=== PATIENT | male | born 1935 | race Caucasian/White ===

== ENCOUNTER 2021-01-10 11:39 | Emergency (ER) | payer MEDICARE, OTHER ==
[2021-01-10 11:04] LABS: BASOPHIL 0.9 % (0-2); EOSINOPHIL 1.7 % (0-7); HCT 38.5 % (42.0-52.0); LYMPHOCYTE 14.6 % (15-48); MCH 31.5 pg (25.0-31.0); MCHC 33.8 g/dL (32.0-36.0); MCV 93.2 fL (78.0-100.0); MONOCYTE 7.8 % (0-12); MPV 10.9 fL (6.0-9.5); NEUTROPHIL 74.4 % (41-80); NRBC 0; PLT 248 K/uL (150-400); RBC 4.13 M/uL (4.70-6.00); RDW 12.4 % (11.5-14.0); WBC 7.7 K/uL (4.0-10.5)
[2021-01-10 11:34] LABS: ALBUMIN 3.5 g/dL (3.4-5.0); BILIRUBIN - TOTAL 0.4 mg/dL (0.2-1.0); BUN/CREAT RATIO (CALC) 18.4 RATIO; CREATININE 1.36 mg/dL (0.67-1.17); GLOBULIN (CALCULATION) 3.3 g/dL; POTASSIUM 4.2 mmol/L (3.5-5.1); TOTAL PROTEIN 6.8 g/dL (6.4-8.2)
== END 2021-01-10 12:32 | disposition home or self-care (01) ==
LOC: FER 11:39
PROVIDERS: Emergency Medicine
DX: R07.89 Other chest pain (principal); J44.9 Chronic obstructive pulmonary disease, unspecified
CPT/HCPCS: 36415; 71046; 73130; 80053; 83690; 84484; 85025; 93005

== ENCOUNTER 2021-07-23 16:31 | Inpatient (IN) | payer MEDICARE, OTHER ==
[~2021-07-23] VITALS: Ht 172.7 cm; Wt 82.7 kg
[2021-07-23 17:17] LABS: BASOPHIL 0.4 % (0-2); EOSINOPHIL 4.1 % (0-7); HCT 46.3 % (42.0-52.0); HGB 15.9 g/dl (13.2-18.0); LYMPHOCYTE 29.2 % (15-48); MCH 32.2 pg (25.0-31.0); MCHC 34.3 g/dL (32.0-36.0); MCV 93.7 fL (78.0-100.0); MONOCYTE 10.7 % (0-12); MPV 11.2 fL (6.0-9.5); NEUTROPHIL 55.2 % (41-80); NRBC 0; PLT 182 K/uL (150-400); RBC 4.94 M/uL (4.70-6.00); RDW 13.4 % (11.5-14.0)
[2021-07-23 17:29] LABS: ALBUMIN 2.9 g/dL (3.4-5.0); BILIRUBIN - TOTAL 0.3 mg/dL (0.2-1.0); BUN/CREAT RATIO (CALC) 18.5 RATIO; CREATININE 1.3 mg/dL (0.67-1.17); GLOBULIN (CALCULATION) 2.8 g/dL; TOTAL PROTEIN 5.7 g/dL (6.4-8.2)
[2021-07-23 17:35] LABS: INR 1.11 (0.9-1.2); PROTHROMBIN TIME 13.7 SECONDS (11.8-13.4); PTT 41.5 SECONDS (24.4-34.7)
[2021-07-23 17:44] LABS: POTASSIUM 3.8 mmol/L (3.5-5.1)
[2021-07-23 18:35] LABS: C-REACTIVE PROTEIN > 18.00 mg/dL (<=0.90); MAGNESIUM 2.1 mg/dL (1.8-2.4)
--- NOTE | 2021-07-23 19:51 | NUR ---
DAUGHTER: MAO VELAZQUEZ [phone]. PER DAUGHTER: "PLEASE CONTACT ME WITH ANY QUESTIONS OR UPDATES; I WILL BE THE BUTTON RECLAIMER SINCE WE CAN'T VISIT DAD (COVID PT)."
[2021-07-24 06:09] LABS: BASOPHIL 0 % (0-2); EOSINOPHIL 0 % (0-7); HCT 36.7 % (42.0-52.0); HGB 11.8 g/dl (13.2-18.0); LYMPHOCYTE 4.2 % (15-48); MCH 31.1 pg (25.0-31.0); MCHC 32.2 g/dL (32.0-36.0); MCV 96.6 fL (78.0-100.0); MONOCYTE 5.7 % (0-12); MPV 11.4 fL (6.0-9.5); NEUTROPHIL 89.6 % (41-80); NRBC 0; PLT 129 K/uL (150-400); RDW 13.1 % (11.5-14.0); WBC 6.5 K/uL (4.0-10.5)
[2021-07-24 06:38] LABS: BUN/CREAT RATIO (CALC) 18.4 RATIO; CREATININE 1.25 mg/dL (0.67-1.17); POTASSIUM 4.1 mmol/L (3.5-5.1)
[2021-07-24 13:11] LABS: BILIRUBIN NEGATIVE (NEGATIVE); BLOOD TRACE-INTACT Ery/uL (NEGATIVE); CLARITY CLEAR (CLEAR); COLOR YELLOW (YELLOW); GLUCOSE (U) TRACE mg/dL (NORMAL); LEUKOCYTES NEGATIVE Leu/uL (NEGATIVE); NITRITE NEGATIVE (NEGATIVE); PROTEIN TRACE (LOW) mg/dL (NEGATIVE); SPECIFIC GRAVITY >=1.030 (1.001-1.030); UROBILINOGEN 0.2 mg/dL (0.2-1.0)
[2021-07-24 13:15] LABS: BACTERIA 1+; SQUAMOUS EPITHELIAL CELLS RARE; URINARY WBC RARE
[2021-07-24] MEDS ORDERED: LISINOPRIL20 MG PO (20:37)
[2021-07-24] MEDS ORDERED: VITAMIN B-125000 MCG SL (20:42)
[2021-07-25 06:03] LABS: BASOPHIL 0.2 % (0-2); EOSINOPHIL 0 % (0-7); HCT 35.5 % (42.0-52.0); HGB 11.4 g/dl (13.2-18.0); LYMPHOCYTE 13.7 % (15-48); MCH 30.2 pg (25.0-31.0); MCHC 32.1 g/dL (32.0-36.0); MCV 93.9 fL (78.0-100.0); MPV 11.5 fL (6.0-9.5); NEUTROPHIL 78.7 % (41-80); NRBC 0; PLT 143 K/uL (150-400); RBC 3.78 M/uL (4.70-6.00); WBC 5.1 K/uL (4.0-10.5)
[2021-07-25 06:46] LABS: BUN/CREAT RATIO (CALC) 22.4 RATIO; C-REACTIVE PROTEIN 12.4 mg/dL (<=0.90); CREATININE 1.07 mg/dL (0.67-1.17); POTASSIUM 4.2 mmol/L (3.5-5.1)
--- NOTE | 2021-07-26 00:09 | NUR ---
ORDER RECEIVED TO SET PARAMETERS ON MONITOR FOR TELEMETRY FOR ALARM OF HR <35. WILL CONNTIUE TO MONITOR
[2021-07-26 07:09] LABS: BASOPHIL 0.1 % (0-2); EOSINOPHIL 0 % (0-7); HCT 35.7 % (42.0-52.0); HGB 11.8 g/dl (13.2-18.0); MCH 30.8 pg (25.0-31.0); MCHC 33.1 g/dL (32.0-36.0); MCV 93.2 fL (78.0-100.0); MONOCYTE 6.6 % (0-12); MPV 11.5 fL (6.0-9.5); NEUTROPHIL 80.9 % (41-80); NRBC 0; PLT 137 K/uL (150-400); RBC 3.83 M/uL (4.70-6.00)
[2021-07-26 07:29] LABS: ALBUMIN 2.6 g/dL (3.4-5.0); BILIRUBIN - TOTAL 0.2 mg/dL (0.2-1.0); BUN/CREAT RATIO (CALC) 26.1 RATIO; CREATININE 0.92 mg/dL (0.67-1.17); GLOBULIN (CALCULATION) 2.8 g/dL; POTASSIUM 4.5 mmol/L (3.5-5.1); TOTAL PROTEIN 5.4 g/dL (6.4-8.2)
[2021-07-27 07:32] LABS: IRON % SATURATION 33.8 %SAT (20-50)
[2021-07-27 08:35] LABS: BASOPHIL 0.2 % (0-2); EOSINOPHIL 0 % (0-7); HGB 11.6 g/dl (13.2-18.0); LYMPHOCYTE 8.7 % (15-48); MCH 30.3 pg (25.0-31.0); MCHC 32.2 g/dL (32.0-36.0); MONOCYTE 9.1 % (0-12); MPV 12.5 fL (6.0-9.5); NEUTROPHIL 81.6 % (41-80); NRBC 0; PLT 135 K/uL (150-400); RBC 3.83 M/uL (4.70-6.00); RDW 12.8 % (11.5-14.0); WBC 5.6 K/uL (4.0-10.5)
[2021-07-27 09:17] LABS: ALBUMIN 2.6 g/dL (3.4-5.0); ALKALINE PHOSHATASE 67 U/L (46-116); ALT 23 U/L (16-63); AST 18 U/L (15-37); BILIRUBIN - TOTAL 0.3 mg/dL (0.2-1.0); BUN 22 mg/dL (7-18); BUN/CREAT RATIO (CALC) 24.2 RATIO; CHLORIDE 104 mmol/L (98-107); CO2 (BICARBONATE) 24 mmol/L (21-32); CREATININE 0.91 mg/dL (0.67-1.17); GLOBULIN (CALCULATION) 3.1 g/dL; GLUCOSE 138 mg/dL (74-106); POTASSIUM 4.3 mmol/L (3.5-5.1); TOTAL PROTEIN 5.7 g/dL (6.4-8.2)
[2021-07-27] MEDS ORDERED: ATROVENT HFA12.9 GM INH (09:49)
[2021-07-27] MEDS ORDERED: VENTOLIN HFA IN18 GM INH (09:49)
[2021-07-27] MEDS ORDERED: DEXAMETHASONE 2M2 MG PO (09:49)
--- NOTE | 2021-07-27 13:44 | NUR ---
TC TO MR. BUTLER DAUGHTER, MAO VELAZQUEZ, [phone]. SHE WOULD LIKE [facility] AND [facility] FOR THE O2. TC TO MR. BUTLER ROOM HE IS IN ISOLATION. ADVISED MR. BUTLER OF WHAT HIS DAUGHTER SAID ABOUT THE HH AND O2. MR. BUTLER IS IN AGREEMENT WITH THE O2. SIGNED CHOICE FORM FOR PT.
== END 2021-07-27 14:25 | disposition home health service (06) | DRG 177 ==
LOC: FER 16:31 → FMS 18:27
PROVIDERS: Allergy & Immunology Allergy; Emergency Medicine; Family Medicine; Nurse Practitioner; ADMIT Internal Medicine
PROC: 8E0ZXY6 Isolation (ICD-10-PCS; principal; 2021-07-23)
PROC: XW033E5 Introduction of Remdesivir Anti-infective into Peripheral Vein, Percutaneous Approach, New Technology Group 5 (ICD-10-PCS; 2021-07-23)
PROC: XW0DXM6 Introduction of Baricitinib into Mouth and Pharynx, External Approach, New Technology Group 6 (ICD-10-PCS; 2021-07-24)
DX: U07.1 COVID-19 (principal); J96.01 Acute respiratory failure with hypoxia; J12.82 Pneumonia due to coronavirus disease 2019; J15.9 Unspecified bacterial pneumonia; N17.9 Acute kidney failure, unspecified; I12.9 Hypertensive chronic kidney disease with stage 1 through stage 4 chronic kidney disease, or unspecified chronic kidney disease; N18.1 Chronic kidney disease, stage 1; J45.909 Unspecified asthma, uncomplicated; M19.90 Unspecified osteoarthritis, unspecified site; D63.1 Anemia in chronic kidney disease; Z90.5 Acquired absence of kidney; Z98.890 Other specified postprocedural states; Z80.0 Family history of malignant neoplasm of digestive organs; Z80.3 Family history of malignant neoplasm of breast
CPT/HCPCS: 36415; 36600; 71045; 71250; 80048; 80053; 81001; 82607; 82728; 82803; 83540; 83550; 83605; 83735; 83880; 84145; 84484; 85025; 85379; 85610; 85730; 86140; 87040; 90732; 93005; 94010; 94640; 94667; 94668; C9399; J0456; J0696; J1100; J1650; J7030; J7050; U0002

== ENCOUNTER 2021-08-01 04:53 | Inpatient (IN) | payer MEDICARE, OTHER ==
[~2021-08-01] VITALS: Ht 172.7 cm; Wt 79.0 kg
[~2021-08-01 04:53] MED LIST: ATROVENT HFA12.9 GM INH; DEXAMETHASONE 2M2 MG PO; LISINOPRIL20 MG PO; VENTOLIN HFA IN18 GM INH; VITAMIN B-125000 MCG SL
[2021-08-01 06:02] LABS: CORONAVIRUS 2019 SARS-COV-2 POSITIVE (NEGATIVE); INFLUENZA A NAA NEGATIVE (NEGATIVE)
[2021-08-01 06:06] LABS: BASOPHIL 0.2 % (0-2); EOSINOPHIL 0 % (0-7); HCT 43.2 % (42.0-52.0); HGB 14.4 g/dl (13.2-18.0); LYMPHOCYTE 2.9 % (15-48); MCH 30.4 pg (25.0-31.0); MCHC 33.3 g/dL (32.0-36.0); MCV 91.1 fL (78.0-100.0); MPV 11.8 fL (6.0-9.5); NEUTROPHIL 91.3 % (41-80); NRBC 0; PLT 304 K/uL (150-400); RBC 4.74 M/uL (4.70-6.00); RDW 12.8 % (11.5-14.0)
[2021-08-01 06:07] LABS: WBC 18.1 K/uL (4.0-10.5)
[2021-08-01 06:30] LABS: INR 1.27 (0.9-1.2); PROTHROMBIN TIME 15.2 SECONDS (11.8-13.4)
[2021-08-01 06:31] LABS: PTT 31.5 SECONDS (24.4-34.7)
[2021-08-01 06:32] LABS: D-DIMER 2.3 ug/mLFEU (0.00-0.41)
[2021-08-01 06:33] LABS: LACTIC ACID 2.2 mmol/L (0.4-1.9)
[2021-08-01 07:00] LABS: ALBUMIN 2.7 g/dL (3.4-5.0); BUN/CREAT RATIO (CALC) 26.9 RATIO; CREATININE 1.04 mg/dL (0.67-1.17); POTASSIUM 4.9 mmol/L (3.5-5.1); TOTAL PROTEIN 6.7 g/dL (6.4-8.2)
[2021-08-01 09:47] LABS: BILIRUBIN NEGATIVE (NEGATIVE); BLOOD NEGATIVE Ery/uL (NEGATIVE); CLARITY CLEAR (CLEAR); COLOR YELLOW (YELLOW); GLUCOSE (U) NORMAL (NORMAL); LEUKOCYTES NEGATIVE Leu/uL (NEGATIVE); NITRITE NEGATIVE (NEGATIVE); PROTEIN 1+ mg/dL (NEGATIVE); pH 5.5 (5.0-9.0)
[2021-08-01 09:55] LABS: BACTERIA TRACE; URINARY WBC RARE
[2021-08-02 08:18] LABS: BASOPHIL 0.2 % (0-2); EOSINOPHIL 0 % (0-7); HCT 39.8 % (42.0-52.0); HGB 13.1 g/dl (13.2-18.0); LYMPHOCYTE 2.2 % (15-48); MCH 30.4 pg (25.0-31.0); MCHC 32.9 g/dL (32.0-36.0); MCV 92.3 fL (78.0-100.0); MONOCYTE 3.6 % (0-12); MPV 11.1 fL (6.0-9.5); NRBC 0; PLT 239 K/uL (150-400); RBC 4.31 M/uL (4.70-6.00); RDW 12.9 % (11.5-14.0)
[2021-08-02 09:38] LABS: ALBUMIN 2.1 g/dL (3.4-5.0); BILIRUBIN - TOTAL 0.5 mg/dL (0.2-1.0); CREATININE 0.94 mg/dL (0.67-1.17); GLOBULIN (CALCULATION) 3.4 g/dL; TOTAL PROTEIN 5.5 g/dL (6.4-8.2)
[2021-08-02] MEDS ORDERED: CEFDINIR300 MG PO (14:44)
[2021-08-02] MEDS ORDERED: VITAMIN D3125 MC1 PO (14:45)
[2021-08-03 07:20] LABS: BASOPHIL 0.1 % (0-2); EOSINOPHIL 0 % (0-7); HGB 12.1 g/dl (13.2-18.0); LYMPHOCYTE 1.6 % (15-48); MCHC 32.7 g/dL (32.0-36.0); MCV 91.6 fL (78.0-100.0); MONOCYTE 2.7 % (0-12); MPV 11.6 fL (6.0-9.5); NRBC 0; PLT 246 K/uL (150-400); RBC 4.04 M/uL (4.70-6.00); RDW 12.9 % (11.5-14.0); WBC 15.8 K/uL (4.0-10.5)
[2021-08-03 07:43] LABS: NEUTROPHIL 94.6 % (41-80)
[2021-08-03 08:38] LABS: ALBUMIN 1.9 g/dL (3.4-5.0); BILIRUBIN - TOTAL 0.4 mg/dL (0.2-1.0); BUN/CREAT RATIO (CALC) 17.8 RATIO; CREATININE 0.9 mg/dL (0.67-1.17); GLOBULIN (CALCULATION) 3.3 g/dL; POTASSIUM 4.5 mmol/L (3.5-5.1); TOTAL PROTEIN 5.2 g/dL (6.4-8.2)
[2021-08-04 06:26] LABS: BASOPHIL 0.1 % (0-2); EOSINOPHIL 0 % (0-7); LYMPHOCYTE 2.5 % (15-48); MCH 30.5 pg (25.0-31.0); MCHC 33.3 g/dL (32.0-36.0); MCV 91.5 fL (78.0-100.0); MONOCYTE 4.8 % (0-12); MPV 11.3 fL (6.0-9.5); NEUTROPHIL 91.6 % (41-80); NRBC 0; PLT 252 K/uL (150-400); RBC 4.26 M/uL (4.70-6.00); RDW 12.9 % (11.5-14.0); WBC 15.3 K/uL (4.0-10.5)
--- NOTE | 2021-08-04 06:31 | NUR ---
THIS PT C/O PAINFUL DRY NOSE D/T OXIMIZER, LUBRICATED WITH [place] JELLY, PT REPORTS RELIEF.
[2021-08-04 07:28] LABS: BILIRUBIN - TOTAL 0.3 mg/dL (0.2-1.0); BUN/CREAT RATIO (CALC) 14.6 RATIO; CREATININE 0.89 mg/dL (0.67-1.17); GLOBULIN (CALCULATION) 3.1 g/dL; POTASSIUM 5.1 mmol/L (3.5-5.1); TOTAL PROTEIN 5.1 g/dL (6.4-8.2)
[2021-08-07 06:08] LABS: HCT 35.7 % (42.0-52.0); MCH 30.5 pg (25.0-31.0); MCHC 33.6 g/dL (32.0-36.0); MCV 90.8 fL (78.0-100.0); RBC 3.93 M/uL (4.70-6.00); RDW 12.7 % (11.5-14.0); WBC 13.9 K/uL (4.0-10.5)
[2021-08-07 06:34] LABS: BUN/CREAT RATIO (CALC) 22.7 RATIO; CREATININE 0.88 mg/dL (0.67-1.17); POTASSIUM 4.3 mmol/L (3.5-5.1)
--- NOTE | 2021-08-07 16:42 | NUR ---
SPOKE WITH PT. DAUGHTER, MAO [phone]. ADVISED HER THAT IS ANTICIPATING D/C OF PT. ON SATURDAY. SHE ADVISED THAT PT. WILL BE GOING TO HIS BROTHER'S HOME AT [facility] [address] [place]. MAO IS GOING TO CALL [facility] TO HAVE THE CONCENTRATOR MOVED TO HIS BROTHER'S HOME. SPOKE WITH RUDY SHE IS GOING TO BRING OVER A PORTABLE TANK FOR PT. D/C HOME. PT IS CURRENT WITH [facility].
[2021-08-08 06:22] LABS: HCT 38.3 % (42.0-52.0); HGB 12.5 g/dl (13.2-18.0); MCH 30.2 pg (25.0-31.0); MCHC 32.6 g/dL (32.0-36.0); MCV 92.5 fL (78.0-100.0); MPV 11.1 fL (6.0-9.5); RBC 4.14 M/uL (4.70-6.00); RDW 12.7 % (11.5-14.0); WBC 15.3 K/uL (4.0-10.5)
[2021-08-08 06:36] LABS: BUN/CREAT RATIO (CALC) 20.9 RATIO; CREATININE 0.91 mg/dL (0.67-1.17); POTASSIUM 5.2 mmol/L (3.5-5.1)
--- NOTE | 2021-08-08 13:14 | NUR ---
RUDY WITH [facility] DELIVERED A ROLLING WALKER. ADVISED FERNANDO WITH [facility] OF PT. ADDRESS WHERE HE WILL BE STAYING WITH HIS BROTHER AND D/C OF TODAY. ADDRESS FOR PT [address] [facility]
== END 2021-08-08 15:20 | disposition home or self-care (01) | DRG 177 ==
LOC: FER 04:53 → FMS 08-02 13:13
PROVIDERS: Emergency Medicine Emergency Medical Services; Hospitalist; Internal Medicine; ADMIT Allergy & Immunology Allergy
PROC: XW033E5 Introduction of Remdesivir Anti-infective into Peripheral Vein, Percutaneous Approach, New Technology Group 5 (ICD-10-PCS; principal; 2021-08-01)
DX: U07.1 COVID-19 (principal); J12.82 Pneumonia due to coronavirus disease 2019; J96.01 Acute respiratory failure with hypoxia; J15.9 Unspecified bacterial pneumonia; J96.02 Acute respiratory failure with hypercapnia; J44.0 Chronic obstructive pulmonary disease with (acute) lower respiratory infection; I10 Essential (primary) hypertension; R73.9 Hyperglycemia, unspecified; T38.0X5A Adverse effect of glucocorticoids and synthetic analogues, initial encounter; Z98.890 Other specified postprocedural states; Z80.1 Family history of malignant neoplasm of trachea, bronchus and lung; Z80.0 Family history of malignant neoplasm of digestive organs; Z80.3 Family history of malignant neoplasm of breast; Z79.899 Other long term (current) drug therapy; Z99.81 Dependence on supplemental oxygen
CPT/HCPCS: 36415; 36600; 71045; 71275; 80048; 80053; 80202; 81001; 82728; 82803; 82962; 83605; 83615; 84145; 84484; 85025; 85379; 85610; 85730; 87040; 87070; 87088; 87205; 93005; 94010; 94640; 94664; 96372; 97162; 97166; 97530-GP; 97535; C9399; J0696; J1100; J1650; J2543; J3370; J3480; J7050; Q9967; U0002